=== PATIENT | male | born 1965 | race Caucasian/White ===

== ENCOUNTER 2021-05-12 07:28 | Inpatient (IN) | payer BC, OTHER ==
[2021-05-09 09:07] LABS: BASOPHILS % 0.6 % (0.0-1.0); EOSINOPHILS # (AUTO) 0.1 (0.0-0.4); EOSINOPHILS % 2.6 % (0.0-6.0); HEMATOCRIT 51.9 % (38.2-49.6); HEMOGLOBIN 17.3 g/dL (14.0-18.0); LYMPHOCYTES # (AUTO) 1.3 (1.0-3.2); LYMPHOCYTES % 24.7 % (18.0-39.1); MEAN CORPUSCULAR HEMOGLOBIN 29.4 pg (28-32); MEAN CORPUSCULAR HGB CONC 33.3 g/dL (31-35); MEAN CORPUSCULAR VOLUME 88.3 fL (81-99); MONOCYTES # (AUTO) 0.6 (0.2-0.8); NEUTROPHILS % 59.9 % (38.7-80.0); PLATELET COUNT 193 x10e3/uL (140-360); RED BLOOD COUNT 5.88 x10e6/uL (4.3-5.7); RED CELL DISTRIBUTION WIDTH 14.4 % (11.7-14.4)
[2021-05-09 09:27] LABS: ANION GAP 17.2 mmol/L (8-16); CALCIUM 9.5 mg/dL (8.4-10.2); CREATININE, SERUM 1.33 mg/dL (0.72-1.25); POTASSIUM 4.2 mmol/L (3.5-5.1)
[~2021-05-12] VITALS: Ht 188 cm; Wt 133.4 kg
[~2021-05-12 07:28] MED LIST: ALLOPURINOL100 MG PO; ARIMIDEX1 MG PO; FISH OIL 1,0001 EAC2 PO; FLOMAX0.4 MG PO; HYDROCHLOROTHIA25 MG PO; LEVOTHYROXINE75 MCG PO; METOPROLOL SUCC50 MG PO; SLOW-MAG64 MG PO; TESTOSTERO100 MG/1 M IM; VIT C PO; VIT D PO; XARELTO20 MG PO; ZENATANE40 MG PO; ZINC PO
[2021-05-12] MEDS ORDERED: BUPIVACAINE 0.25% 30ML SDV ONE (10:41)
[2021-05-12] MEDS ORDERED: ACETAMINOPHEN 1000 MG/100 ML 100 ML IV ONE (11:27)
[2021-05-12] MEDS ORDERED: GLYCOPYRROLATE INJ 0.2 MG/ML VIAL ONE (12:53)
[2021-05-12] MEDS ORDERED: ROCURONIUM BROMIDE 10 MG/ML 5ML VIAL IV ONE (12:53)
[2021-05-12] MEDS ORDERED: PROPOFOL IV EMULSION 10 MG/ML 20 ML VIAL ONE (12:53)
[2021-05-12] MEDS ORDERED: NEOSTIGMINE 1 MG/ML 10ML VIAL ONE (12:53)
[2021-05-12] MEDS ORDERED: LIDOCAINE HCL 2% LOCAL INJ 5 ML SDV VIAL INJ ONE (12:53)
[2021-05-12] MEDS ORDERED: DEXAMETHASONE SOD PHOS INJ 4 MG/ML VIAL ONE (12:53)
[2021-05-12] MEDS ORDERED: KETOROLAC TROMETHAMINE 30 MG/ML VIAL ONE (12:53)
[2021-05-12] MEDS ORDERED: POVIDONE IODINE 0.05% 0.05 % ML PO ONE (12:53)
[2021-05-12] MEDS ORDERED: ONDANSETRON HCL INJ 2MG/ML 2ML 2 MG/ML VIAL ONE (12:53)
[2021-05-12] MEDS ORDERED: SEVOFLURANE INHAL SOLN 250 ML PEN BTL ONE (12:53)
[2021-05-12] MEDS ORDERED: FENTANYL CITRATE/PF 100MCG/2 ML INJ ONE ×2 (12:53→13:21)
[2021-05-12] MEDS ORDERED: MIDAZOLAM HCL 2 MG/2 ML VIAL ONE (13:21)
[2021-05-12] MEDS ORDERED: MORPHINE SULFATE INJ 2 MG/ML SYR IV PRN (13:45)
[2021-05-12] MEDS ORDERED: HYDROCODONE/APAP 7.5MG-325MG 1 EA TAB PO PRN (13:45)
[2021-05-12] MEDS: ONDANSETRON HCL INJ 2MG/ML 2ML 2 MG/ML VIAL IV PRN ×2 (14:43→21:08)
[2021-05-12] MEDS: LACTATED RINGER'S 1,000 ML INJ SCH ×2 (14:43→22:45)
[2021-05-12] MEDS ORDERED: SCOPOLAMINE 1.5 MG PATCH TOP ONE (14:45)
[2021-05-12 15:31] VITALS: BP 127/87
[2021-05-12 16:00] VITALS: BP 130/73
[2021-05-12 16:20] VITALS: BP 127/87
[2021-05-12] MEDS ORDERED: DIAZEPAM INJ 5 MG/ML 2 ML IV PRN (17:00)
[2021-05-12] MEDS: FAMOTIDINE 20 MG/2 ML VIAL IV SCH (17:14)
[2021-05-12] MEDS ORDERED: FUROSEMIDE INJ 10 MG/ML 4 ML VIAL IV ONE (17:30)
[2021-05-12] MEDS ORDERED: ENOXAPARIN SODIUM INJ 100 MG/ML SYR SC ONE (17:30)
[2021-05-12] MEDS ORDERED: HYDROMORPHONE 1MG/1ML INJ IV PRN (17:45)
[2021-05-12] MEDS ORDERED: IOPAMIDOL 370 MG/ML 200 ML INFUS..BTL INJ ONE (19:11)
[2021-05-12] MEDS ORDERED: SODIUM CHLORIDE 0.9% 100 ML ONE (19:11)
[2021-05-12 19:35] VITALS: BP 137/71
[2021-05-12 21:00] VITALS: BP 137/71
[2021-05-13 01:30] VITALS: BP 129/87
[2021-05-13] MEDS: LACTATED RINGER'S 1,000 ML INJ SCH (03:16)
[2021-05-13] MEDS: ONDANSETRON HCL INJ 2MG/ML 2ML 2 MG/ML VIAL IV PRN (03:24)
[2021-05-13 05:00] VITALS: BP 128/77
[2021-05-13 05:13] LABS: BASOPHILS % 0.2 % (0.0-1.0); HEMATOCRIT 51.7 % (38.2-49.6); HEMOGLOBIN 17.4 g/dL (14.0-18.0); LYMPHOCYTES # (AUTO) 0.9 (1.0-3.2); LYMPHOCYTES % 11.1 % (18.0-39.1); MEAN CORPUSCULAR HEMOGLOBIN 29.7 pg (28-32); MEAN CORPUSCULAR HGB CONC 33.7 g/dL (31-35); MEAN CORPUSCULAR VOLUME 88.2 fL (81-99); MONOCYTES # (AUTO) 0.8 (0.2-0.8); MONOCYTES % 10.1 % (4.4-11.3); NEUTROPHILS # (AUTO) 6.4 (2.1-6.9); NEUTROPHILS % 78.2 % (38.7-80.0); PLATELET COUNT 204 x10e3/uL (140-360); RED BLOOD COUNT 5.86 x10e6/uL (4.3-5.7); RED CELL DISTRIBUTION WIDTH 14.4 % (11.7-14.4)
[2021-05-13 05:43] LABS: ALBUMIN 4.2 g/dL (3.5-5.0); ALBUMIN/GLOBULIN RATIO 1.3 (0.8-2.0); ANION GAP 20.6 mmol/L (8-16); CALCIUM 9.3 mg/dL (8.4-10.2); CREATININE, SERUM 1.49 mg/dL (0.72-1.25); POTASSIUM 4.6 mmol/L (3.5-5.1)
[2021-05-13] MEDS ORDERED: ENOXAPARIN SOD INJ 40 MG/0.4 ML SYR SC SCH (06:00)
[2021-05-13] MEDS: FAMOTIDINE 20 MG/2 ML VIAL IV SCH (08:35)
[2021-05-13 08:58] VITALS: BP 155/97
[2021-05-13 09:27] VITALS: BP 155/97
== END 2021-05-13 11:00 | disposition home or self-care (01) | DRG 621 ==
LOC: OR 07:28 → PACU V 12:17 → MED/SURG3 13:00 → OBSVTOIN 16:23
PROVIDERS: ADMIT Internal Medicine; ATTEND Internal Medicine
PROC: 0DB64Z3 Excision of Stomach, Percutaneous Endoscopic Approach, Vertical (ICD-10-PCS; principal; 2021-05-12 10:49)
DX: E66.01 Morbid (severe) obesity due to excess calories (principal); G47.33 Obstructive sleep apnea (adult) (pediatric); I48.0 Paroxysmal atrial fibrillation; I13.10 Hypertensive heart and chronic kidney disease without heart failure, with stage 1 through stage 4 chronic kidney disease, or unspecified chronic kidney disease; N18.30 Chronic kidney disease, stage 3 unspecified; Z98.890 Other specified postprocedural states; R07.81 Pleurodynia; E29.1 Testicular hypofunction; Z68.37 Body mass index [BMI] 37.0-37.9, adult; Z20.822 Contact with and (suspected) exposure to COVID-19; D75.1 Secondary polycythemia
CPT/HCPCS: 36415; 71260; 80048; 80053; 84484; 85025; 93005; J0690; J1100; J1170; J1650; J1885; J1940; J2001; J2250; J2270; J2405; J2710; J3010; J3360; J7050; J7121; Q9967; U0002